=== PATIENT | male | born 1980 | race Two or more races ===

== ENCOUNTER 2021-08-16 14:31 | Emergency (ER) | payer BC, OTHER ==
[~2021-08-16] VITALS: Ht 180.3 cm; Wt 70.3 kg
[2021-08-16 17:07] VITALS: BP 129/79
[2021-08-16] MEDS ORDERED: TETANUS-DIPTH-ACEL PERTUSSIS 0.5ML SYR Tdap IM ONE (17:15)
== END 2021-08-16 18:06 | disposition home or self-care (01) ==
LOC: ER 14:31
DX: S61.211A Laceration without foreign body of left index finger without damage to nail, initial encounter (principal); Z23 Encounter for immunization; W22.8XXA Striking against or struck by other objects, initial encounter; Y93.89 Activity, other specified; Y92.89 Other specified places as the place of occurrence of the external cause; Y99.8 Other external cause status
CPT/HCPCS: 12002; 90471; 90715